=== PATIENT | female | born 1975 | race Caucasian/White ===

== ENCOUNTER 2019-11-05 18:11 | Emergency (ER) | payer BC, SELFPAY ==
[2019-11-05 18:18] VITALS: BP 152/84; PULSE 68; RESP 16; TEMP 36.8; O2SAT 100
--- NOTE | 2019-11-05 18:24 | ECG_ITS ---
Measurements Intervals [place] Rate: 58 P: 49 HI: 149 QRS: 72 QRSD: 89 T: 49 QT: 422 QTc: 415 Interpretive Statements SINUS BRADYCARDIA WITH MARKED SINUS ARRHYTHMIA VOLTAGE CRITERIA FOR LVH PEAKED T WAVES- CONSIDER HYPERKALEMIA OR ISCHEMIA ABNORMAL ECG Electronically Signed On 11-06-2019 6:57:15 MANAGER WILLOW by Juan Jose Angel D.O.
--- NOTE | 2019-11-05 18:29 | ED.UPPEXIN ---
HPI - Extremity Injury (Upper) General Chief Complaint: Extremity Injury, Upper Stated Complaint: R ARM/L FINGERTIPS NUMBNESS/TINGLING Source: patient and RN notes reviewed Mode of arrival: ambulatory Limitations: no limitations History of Present Illness HPI narrative: The patient-- who is right-handed, non-smoker/occasional drinker mostly healthy -- presents with numbness, discomfort. Patient states she had quick onset today of right upper extremity discomfort radiating to primarily her thumb and index fingers, while driving . 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 She notes that she had definite skin changes with blanching of her index finger during the event. No fever, injury, neck pain, gait changes, radiating pain, lateralizing weakness, speech?visual changes, BP med noncompliance. She has a history of hypertension & stage 1 CKD, secondary to teenage acute glomerulonephritis, and reportedly good blood test in the last year. EKG today shows no acute MD, sinus bradycardia with borderline LVH and generous T waves stable appearing[ not peaked or narrow based, nor asymmetric, and less than or equal to half height of QRS] She has a prior history of sinus bradycardia on EKG Related Data Home Medications Medication Instructions Recorded Confirmed Daily Multivitamin 11/05/19 cranberry 11/05/19 irbesartan 150 mg PO DAILY 11/05/19 11/05/19 Allergies Allergy/AdvReac Type Severity Reaction Status Date / Time Penicillins Allergy Unknown Hives Verified 11/06/19 15:14 Review of Systems Review of Systems: Narrative: General/Constitutional: No weight loss,fever Eyes: N0: Redness,discharge Ears/Nose/Throat: No: Epistaxis,ear discharge Respiratory: Denies: Hemoptysis Gastrointestinal: No Vomiting, Bleeding-rectal Skin: No Lumps, eruption Neurologic: No Focal Weakness,Sz Hematologic: Denies: Petechiae/Purpura Psychiatric: No: Suicida ideationl All Other Systems: Reviewed and Negative [facility] Family History Family History (System 11/06/19 @ 15:14 by Nayeli Graves) Father Diabetes mellitus Mother Hypertension Sibling Patient's sister is in good health Patient's brother is in good health Comments At time of signature, agree with nursing past medical, surgical, social and family history. There is no relevant family history pertinent to the presenting complaint Exam Narrative: Exam Narrative: General Appearance: Well appearing, No distress EYE: PERRLA, Conjunctiva clear, EOMI Neurological: A&O x3, CN II-X intact Ears: External ear normal Nose: Normal nose, nl finger to nose, heel-donato Mouth/Throat: Normal appearing, Normal lips Neck: Supple, SROM/ FAROM Respiratory: Airway patent, No respiratory distress Cardiovascular: RRR Abdomen: Soft, Non-tender, No massess, Musculoskeletal: Full ROM Skin: Warm, Dry, decreased light touch sensation thumb and index finger Psychiatric: Normal mood, Normal affect Course Vital Signs Vital signs: Vital Signs Temperature 98.3 F 11/05/19 18:18 Pulse Rate 68 11/05/19 18:18 Respiratory Rate 16 11/05/19 18:18 Blood Pressure 152/84 H 11/05/19 18:18 Pulse Oximetry 100 11/05/19 18:18 Temperature 98.3 F 11/05/19 18:18 Pulse Rate 68 11/05/19 18:18 Respiratory Rate 16 11/05/19 18:18 Blood Pressure 152/84 H 11/05/19 18:18 Pulse Oximetry 100 11/05/19 18:18 Discharge Plan Discharge Clinical Impression: Cervical radiculopathy Patient Disposition: Home, Self-Care Condition: Stable Instructions: Cervical Radiculopathy (ED) Additional Instructions: You have declined hospital transfer; advised to go to higher-level care facility to higher level testing if not improved , because for early diagnosis of serious problems [metabolic/ renal,neuro ], clear specific symptoms do not develop until later. You declined prednisone, but can take baby aspirin
== END 2019-11-05 19:13 | disposition home or self-care (01) ==
PROVIDERS: Emergency Provider Emergency Medicine; PCP Internal Medicine
DX: M54.12 Radiculopathy, cervical region (principal); R94.31 Abnormal electrocardiogram [ECG] [EKG]
CPT/HCPCS: 93005; 99212; G0463

== ENCOUNTER 2020-10-03 09:05 | Outpatient (NON) | payer BC, SELFPAY ==
[2020-10-03 22:00] LABS: SARS-CoV-2 RNA PCR Negative
== END 2020-10-03 09:06 ==
LOC: ANHCOVIDDT 09:06
PROVIDERS: Visit Provider Internal Medicine
DX: R68.89 Other general symptoms and signs (principal); Z20.828 Contact with and (suspected) exposure to other viral communicable diseases
CPT/HCPCS: 87635; C9803; U0003

== ENCOUNTER 2025-09-24 07:03 | Emergency (ER) | payer BC, SELFPAY ==
--- NOTE | ~2025-09-24 | XR_ITS ---
Examination: XR chest 2V Clinical History: DIZZINESS, CHEST TIGHTNESS PRESSURE Comparison: None Technique: PA and Lateral Findings: Cardiomediastinal silhouette normal size and configuration. Lungs clear. No acute bony abnormality. IMPRESSION: 1. No acute cardiopulmonary findings. Reviewed, dictated and finalized at location R. CATION CARE MANAGER
--- NOTE | 2025-09-24 07:10 | ECG_ITS ---
Test Date: 2025-09-24 07:18:18 Measurements Intervals [place] Rate: 70 P: 63 TX: 166 QRS: 61 QRSD: 94 T: 53 QT: 392 QTc: 425 Interpretive Statements SINUS RHYTHM WITH SINUS ARRHYTHMIA MINIMAL Q WAVES- INFERIOR LEADS BORDERLINE ECG No previous ECG available for comparison Electronically Signed On 09-24-2025 08:03:25 ASSISTANT CREDIT MANAGER by Juan Jose Angel D.O.
[2025-09-24 07:13] VITALS: BP 128/83; PULSE 72; RESP 14; TEMP 36.5; O2SAT 100
--- NOTE | 2025-09-24 07:27 | PC.NURSE ---
Pt declines having IV. States prefer to have straight stick for blood draw and labs.
[2025-09-24 07:40] LABS: Hematocrit 41.3 % (37.0-47.0); Hemoglobin 14.1 g/dL (12.0-15.0); Immature Granulocyte Percent A 0.0 % (0-0.5); Lymphocytes Absolute Auto 0.82 K/mm3 (0.9-3.2); Mean Corpuscular HGB Conc 34.1 g/dl (32-36); Mean Corpuscular Hemoglobin 30.5 pg (26-34); Mean Corpuscular Volume 89.4 fl (80-100); Nucleated Red Blood Cells Absolute Auto 0.000 K/mm3 (0.0-0.012); Nucleated Red Blood Cells Perc 0.0 % (0.0-0.2); Platelet Count Result 202 k/mm3 (150-375); Red Blood Count 4.62 M/mm3 (4.2-5.4); White Blood Count 3.2 K/mm3 (4.5-10.0)
--- NOTE | 2025-09-24 07:44 | ED.CHESTPAIN ---
HPI - Chest Pain General Chief Complaint: Chest Pain Stated Complaint: chest pressure/dizziness Time Seen by Provider: 09/24/25 07:43 History of Present Illness HPI narrative: 50-year-old female presents emergency department with episode of lightheadedness and chest discomfort proximally 5:00 a.m. patient states she has had similar episodes in the past was told was vasovagal. She denies any infectious symptoms denies any shortness of breath denies any structural heart disease or coronary artery disease. She does have a history of chronic kidney disease. She states she otherwise feels in her usual state of health. Denies any diaphoresis or vomiting or abdominal pain or dyspnea exertion. Related Data Home Medications ?Medication ?Instructions ?Recorded ?Confirmed ?Last Taken ?Type irbesartan 150 mg tablet 150 mg PO DAILY 11/05/19 03/16/20 Unknown History Allergies Allergy/AdvReac Type Severity Reaction Status Date / Time Penicillins Allergy Unknown Hives Verified 09/24/25 07:17 Review of Systems Review of Systems: All systems reviewed & are unremarkable except as noted in HPI and below PMFSH Past Medical History Medical History (Updated 09/24/25 @ 08:22 by Bereket Palacios MD) IBS (irritable bowel syndrome) Hypertension Herpes zoster CKD (chronic kidney disease) stage 2, GFR 60-89 ml/min Family History Family History Father Diabetes mellitus Mother Hypertension Sibling Patient's sister is in good health Patient's brother is in good health Exam Narrative: EXAMINATION OF ORGAN SYSTEMS/BODY AREAS: Constitutional: Vital signs per nursing GENERAL:No acute distress, non-toxic appearing. HEAD: Normal with no signs of head trauma. EYES: EOMI, conjunctiva normal ENT: Hearing grossly intact LUNGS: Nonlabored breathing. Clear to auscultation bilaterally HEART: Regular rate and rhythm 2+ radial pulses ABD: Soft],[nontender to palpatio] EXT: Normal range of motion SKIN: [No rashes or lesions] NEURO:[Alert. No gross focal sensory or strength deficits] PSYCH: Normal affect Course Vital Signs Vital signs: Vital Signs Temperature 36.5 C 09/24/25 07:13 Pulse Rate 72 09/24/25 07:13 Respiratory Rate 14 09/24/25 07:13 Blood Pressure 128/83 09/24/25 07:13 Pulse Oximetry 100 09/24/25 07:13 Oxygen Delivery Room Air 09/24/25 07:13 Temperature 36.5 C 09/24/25 07:13 Pulse Rate 72 09/24/25 07:13 Respiratory Rate 14 09/24/25 07:13 Blood Pressure 128/83 09/24/25 07:13 Pulse Oximetry 100 09/24/25 07:13 Oxygen Delivery Room Air 09/24/25 07:17 MDM Differential Diagnosis Differential Diagnosis: 50-year-old female presents with chest discomfort and lightheadedness. She is neurologically intact, she is well appearing. On the differential as atypical presentation of ACS versus vasovagal syncope versus severe electrolyte abnormality or new onset acute renal failure given her history of chronic kidney disease versus viral syndrome. Will obtain cardiac workup chest x-ray continuous vital sign moderate implant for evaluation of her workup treatment. Results and re-evaluation Patient's labs reviewed within acceptable limits. EKG without any evidence of ischemia or arrhythmia. Troponin undetectable. Chest x-ray without infiltrate or pneumothorax. Discussed with the patient I do not have a diagnosis for her but I do suspect it may be vasovagal syncope ear or perimenopausal symptoms. Given all the data her presentation is for close outpatient follow the primary care doctor return to ER for new or concerning symptoms. All questions answered discharged in stable condition Medical Records I have reviewed the following patient records and this information was taken into consideration when formulating the assessment and plan.: previous labs and previous ER visits Lab Data [facility] Lab Attestation statement: I personally reviewed the patient's lab results. 09/24/25 07:33 09/24/25 07:33 Labs: Lab Results 09/24/25 Range/Units 07:33 WBC 3.2 L (4.5-10.0) K/mm3 RBC 4.62 (4.2-5.4) M/mm3 Hgb 14.1 (12.0-15.0) g/dL Hct 41.3 (37.0-47.0) % MCV 89.4 (80-100) fl MCH 30.5 (26-34) pg MCHC 34.1 (32-36) g/dl RDW 11.5 (11.5-14.5) % Plt Count 202 (150-375) k/mm3 MPV 11.5 H (7.4-10.4) fl Immature Gran % (Auto) 0.0 (0-0.5) % Neut % (Auto) 59.2 (45.5-73.1) % Lymph % (Auto) 25.9 (18.3-44.2) % [place] % (Auto) 11.1 H (2.6-8.5) % Eos % (Auto) 2.2 (0-4.4) % Baso % (Auto) 1.6 H (0.2-1.2) % Lymph # (Auto) 0.82 L (0.9-3.2) K/mm3 [place] # (Auto) 0.4 (0.1-0.6) K/mm3 Eos # (Auto) 0.1 (0-0.3) K/mm3 Baso # (Auto) 0.1 (0.0-0.1) K/mm3 Abs Immat Gran (auto) 0.00 (0.00-0.031) K/mm3 Absolute Neuts (auto) 1.9 (1.3-6.7) K/mm3 Absolute Nucleated RBC 0.000 (0.0-0.012) K/mm3 Nucleated RBC % 0.0 (0.0-0.2) % PT Pending INR Pending APTT Pending Sodium 138 (137-145) mmol/L Potassium 4.1 (3.4-5.0) mmol/L Chloride 102 (98-107) mmol/L Carbon Dioxide 33 H (22-30) mmol/L Anion Gap 3 L (4-12) mmol/L BUN 37 H (7-17) mg/dL Creatinine 1.67 H (0.7-1.0) mg/dL Estim Creat Clear Calc 37 ml/min Estimated GFR 33 L (59 - ) Glucose 97 (65-110) mg/dL Calcium 9.6 (8.4-10.2) mg/dL Total Bilirubin 1.2 (0.2-1.3) mg/dL AST 28 (14-36) U/L ALT 15 (6-35) U/L Alkaline Phosphatase 53 (38-126) U/L Troponin I < 0.012 (0.000-0.034) ng/mL Total Protein 7.0 (6.3-8.2) g/dL Albumin 4.1 (3.5-5.1) g/dL Lipase 170 (23-300) U/L Imaging Data Attestation: I personally reviewed and interpreted this imaging study as follows: My impression: Chest x-ray per my interpretation shows normal cardiac silhouette. No free air no infiltrate. Radiologist's impression: ITS Impressions Chest X-Ray 09/24/25 07:53 IMPRESSION: 1. No acute cardiopulmonary findings. ECG Data EKG #1: Attestation: I personally reviewed and interpreted this ECG as follows: Interpretation: Twelve lead EKG per my interpretation shows normal sinus rhythm at 70 beats per minute. No evidence of ST segment elevation depression. Normal intervals. Overall impression EKG. Discharge Plan Discharge Clinical Impression: CKD (chronic kidney disease) stage 2, GFR 60-89 ml/min, Vasovagal near syncope, Atypical chest pain Patient Disposition: Home Condition: Stable Instructions: Chest Pain (ED), Lightheadedness (ED) Patient Language: Bhutanese Prescriptions: No Action irbesartan 150 mg Tablet 150 mg PO DAILY Follow-up/Referrals: PHYSICIAN NOT ON STAFF,NONSTAFF [Primary Care Provider] Time of Disposition: 08:22
[2025-09-24 07:55] LABS: Alanine Aminotransferase 15 U/L (6-35); Albumin Level 4.1 g/dL (3.5-5.1); Alkaline Phosphatase 53 U/L (38-126); Anion Gap 3 mmol/L (4-12); Aspartate Amino Transferase 28 U/L (14-36); Bilirubin,Total 1.2 mg/dL (0.2-1.3); Blood Urea Nitrogen 37 mg/dL (7-17); Calcium 9.6 mg/dL (8.4-10.2); Carbon Dioxide 33 mmol/L (22-30); Chloride 102 mmol/L (98-107); Estimated CRCL calculation 37 ml/min; Estimated Glomerular Filt Rate 33; Glucose 97 mg/dL (65-110); Lipase 170 U/L (23-300); Potassium 4.1 mmol/L (3.4-5.0); Sodium 138 mmol/L (137-145); Total Protein 7.0 g/dL (6.3-8.2)
[2025-09-24 08:06] LABS: Troponin I < 0.012 ng/mL (0.000-0.034)
[2025-09-24 08:18] VITALS: BP 119/80; PULSE 68; RESP 15; O2SAT 100
[2025-09-24 08:23] LABS: INR 1.1; Partial Thromboplastin Time 32.9 Seconds (22.3-36.8); Prothrombin Time 13.8 Seconds (11.1-14.7)
== END 2025-09-24 08:30 | disposition home or self-care (01) ==
PROVIDERS: Emergency Provider Emergency Medicine
DX: R42 Dizziness and giddiness (principal); R07.89 Other chest pain; I12.9 Hypertensive chronic kidney disease with stage 1 through stage 4 chronic kidney disease, or unspecified chronic kidney disease; N18.2 Chronic kidney disease, stage 2 (mild); K58.9 Irritable bowel syndrome, unspecified; R94.31 Abnormal electrocardiogram [ECG] [EKG]
CPT/HCPCS: 36415; 71046; 80053; 83690; 84484; 85025; 85610; 85730; 93005; 99284